=== PATIENT | female | born 1995 | race Hispanic/Latino ===

== ENCOUNTER 2018-03-08 06:45 | Outpatient (CLI) | payer BC, OTHER | END 2018-03-08 06:46 | disposition home or self-care (01) | LOC: BICULT 06:45 | PROVIDERS: ATTEND Family Medicine | DX: Z34.82 Encounter for supervision of other normal pregnancy, second trimester (principal); Z3A.17 17 weeks gestation of pregnancy | CPT/HCPCS: 76805 ==

== ENCOUNTER 2018-05-28 15:04 | Emergency (ER) | payer BC, OTHER ==
[2018-05-28 15:41] LABS: Bilirubin Negative (Negative); Blood, Urine Negative (Negative); Clarity CLOUDY (Clear); Glucose, Urine (Dipstick) 100 mg/dL (Negative); Leukocyte Small (Negative); Nitrite Negative (Negative); Protein, Urine (Dipstick) 30 mg/dL (Neg-Trace); Specific Gravity, Urine 1.026 (1.002-1.036)
[2018-05-28 15:42] LABS: Bacteria/HPF 4+ HPF (None Seen); RBC/HPF 0-3 HPF (0-3)
[2018-05-28 15:44] LABS: Pathc Cast-AUWi Flag 11.04 (0-2.49); Yeast-AUWi Flag 27.3 (0-25.0)
[2018-05-28 15:57] LABS: #Eosinphils 0.1 thou/uL (0.0-0.7); #Lymphocytes 2.2 thou/uL (1.20-3.40); #Monocytes 0.9 thou/uL (0.11-0.59); #Neutrophils 9.1 thou/uL (1.40-6.50); %Basophils 0.3 % (0.0-1.0); %Eosinophils 0.8 % (0.0-10.0); %Lymphocytes 17.6 % (21.0-51.0); %Monocytes 7.2 % (0.0-10.0); %Neutrophils 74.2 % (42.0-75.0); Mean Corpuscular HGB CONC 33.6 g/dL (32.0-36.0); Mean Corpuscular Hemoglobin 26.9 pg (27.0-31.0); Mean Corpuscular Volume 80.1 fL (78.0-98.0); Mean Platelet Volume 8.3 fL (7.4-10.4); Platelet Count 234 thou/uL (130-400); Red Blood Cell (RBC) Count 4.47 mill/uL (4.20-5.40); White Blood Cell (WBC) Count 12.3 thou/uL (4.8-10.8)
[2018-05-28 15:58] LABS: Hyaline Casts/LPF 0-3 HYALINE CAST LPF (0-3 Hyaline); Other Casts/LPF None Seen LPF (0-3 Hyaline); Yeast-All Forms None Seen HPF (None Seen)
== END 2018-05-28 16:48 | disposition left against medical advice (07) ==
LOC: ERS 15:04
DX: Z53.21 Procedure and treatment not carried out due to patient leaving prior to being seen by health care provider (principal)
CPT/HCPCS: 36415; 81003; 81015; 85025

== ENCOUNTER 2018-07-20 11:21 | Day surgery (SDC) | payer BC, OTHER ==
[2018-07-20 11:58] VITALS: BMI 42.9
== END 2018-07-20 12:34 | disposition home or self-care (01) ==
LOC: L&D/OP 11:21
PROVIDERS: ATTEND Family Medicine
DX: Z36.89 Encounter for other specified antenatal screening (principal); Z3A.37 37 weeks gestation of pregnancy
CPT/HCPCS: 59025; 99282

== ENCOUNTER 2018-07-28 16:17 | Day surgery (SDC) | payer BC, OTHER ==
[2018-07-28 17:07] LABS: ALT (SGPT) 12 U/L (8-55); AST (SGOT) 16 U/L (5-34); Albumin 3.2 g/dL (3.5-5.0); Alkaline Phosphatase 237 U/L (40-150); Anion Gap 12 mmol/L (10-20); BUN (Urea Nitrogen) 10 mg/dL (7.0-18.7); Bilirubin, Total 0.3 mg/dL (0.2-1.2); Calc. Creatinine Clearance 0 mL/min (70-130); Calcium 8.7 mg/dL (7.8-10.44); Carbon Dioxide 20 mmol/L (22-29); Chloride 107 mmol/L (98-107); Estimated GFR-MDRD Greater than 90; Globulin 3.6 g/dL (2.4-3.5); Glucose 127 mg/dL (70-105); Potassium 3.6 mmol/L (3.5-5.1); Protein, Total 6.8 g/dL (6.0-8.3); Sodium 135 mmol/L (136-145)
[2018-07-28 17:21] LABS: #Eosinphils 0.1 thou/uL (0.0-0.7); #Lymphocytes 2.3 thou/uL (1.20-3.40); #Monocytes 1.1 thou/uL (0.11-0.59); #Neutrophils 9.6 thou/uL (1.40-6.50); %Eosinophils 1.1 % (0.0-10.0); %Lymphocytes 17.2 % (21.0-51.0); %Monocytes 8.3 % (0.0-10.0); %Neutrophils 73.4 % (42.0-75.0); Anisocytosis SLIGHT = 6-15 cells (100X) (0-5/hpf); Elliptocytes SLIGHT = 2-5 cells (100X) (0-1/hpf); Hemoglobin 11.3 g/dL (12.0-16.0); Hypochromia SLIGHT = 6-15 cells (100X) (0-5/hpf); MDiff Complete? YES; Mean Corpuscular HGB CONC 31.4 g/dL (32.0-36.0); Mean Corpuscular Hemoglobin 23.5 pg (27.0-31.0); Mean Corpuscular Volume 74.8 fL (78.0-98.0); Mean Platelet Volume 9.5 fL (7.4-10.4); Microcytosis SLIGHT = 6-15 cells (100X) (0-5/hpf); PLT Morphology Comment Appears Adequate; Platelet Count 275 thou/uL (130-400); RBC Distribution Width 15.8 % (11.5-14.5); Red Blood Cell (RBC) Count 4.81 mill/uL (4.20-5.40); Tear Drops SLIGHT = 2-5 cells (100X) (0-1/hpf); White Blood Cell (WBC) Count 13.1 thou/uL (4.8-10.8)
[2018-07-28 17:41] VITALS: BMI 42.7
== END 2018-07-28 16:40 | disposition home or self-care (01) ==
LOC: L&D/OP 16:17
PROVIDERS: ATTEND Family Medicine
DX: O99.89 Other specified diseases and conditions complicating pregnancy, childbirth and the puerperium (principal); R03.0 Elevated blood-pressure reading, without diagnosis of hypertension; O24.415 Gestational diabetes mellitus in pregnancy, controlled by oral hypoglycemic drugs; Z3A.38 38 weeks gestation of pregnancy
CPT/HCPCS: 36415; 59025; 80053; 85025; 99282

== ENCOUNTER 2018-07-29 00:52 | Inpatient (IN) | payer BC, OTHER ==
[2018-07-29] MEDS: Lactated Ringer's 1,000 ML IV SCH ×3 (01:50→05:03)
[2018-07-29 01:51] VITALS: BMI 42.9
[2018-07-29] MEDS ORDERED: Acetaminophen 500 MG TAB PO PRN (02:00)
[2018-07-29] MEDS ORDERED: Promethazine HCl 25 MG/ML VIAL IM PRN ×2 (02:00→03:00)
[2018-07-29] MEDS ORDERED: Butorphanol Tartrate 1 MG/ML VIAL SLOW IVP PRN (02:00)
[2018-07-29] MEDS ORDERED: Ondansetron HCl/PF 4 MG/2 ML Vial IVP PRN ×3 (02:00→08:02)
[2018-07-29 02:01] LABS: Hemoglobin 11.1 g/dL (12.0-16.0); Mean Corpuscular HGB CONC 31.9 g/dL (32.0-36.0); Mean Corpuscular Hemoglobin 23.9 pg (27.0-31.0); Mean Corpuscular Volume 74.8 fL (78.0-98.0); Platelet Count 273 thou/uL (130-400); RBC Distribution Width 15.7 % (11.5-14.5); Red Blood Cell (RBC) Count 4.64 mill/uL (4.20-5.40); White Blood Cell (WBC) Count 12.8 thou/uL (4.8-10.8)
[2018-07-29] MEDS ORDERED: NS w/ Oxytocin 10 units 500 ML IV SCH ×2 (02:15)
[2018-07-29] MEDS ORDERED: HYDROcodone/Acetaminophen 5/325 mg Tablet PO PRN ×3 (02:15→08:02)
[2018-07-29] MEDS ORDERED: Bupivacaine 0.5% 20 ML, fentaNYL Citrate/PF 400 MCG in Sodium Chloride 0.9% 72 ML EPIDURAL SCH (02:15)
[2018-07-29] MEDS ORDERED: DISCONTINUE ALL PREVIOUS NARCOTICS FS SCH (02:15)
[2018-07-29] MEDS ORDERED: Methylergonovine 0.2 MG/ML VIAL IM PRN (02:15)
[2018-07-29] MEDS ORDERED: Lidocaine 1% (PF) 30 ML VIAL SC PRN (02:15)
[2018-07-29] MEDS ORDERED: Ibuprofen 800 MG TAB PO PRN (02:15)
[2018-07-29] MEDS ORDERED: NS / Oxytocin 40 units/1000ml 1,000 ML IV SCH ×2 (02:15→08:02)
[2018-07-29] MEDS ORDERED: Carboprost 250 MCG/ML AMP IM PRN (02:15)
[2018-07-29] MEDS ORDERED: Misoprostol 200 MCG TAB RC PRN (02:15)
[2018-07-29 02:38] LABS: HBSAg Index 0.19 S/CO (0-0.99); Hep B Surf Ag Non-Reactive S/CO (NonReactive)
[2018-07-29] MEDS ORDERED: Eucerin (Mineral Oil/Petrolatum,White) 30 gm Jar TOP PRN (03:00)
[2018-07-29] MEDS ORDERED: Lactated Ringer's 500 ML IV PRN (03:00)
[2018-07-29] MEDS ORDERED: ePHEDrine/0.9% NaCl/PF SYRINGE 50 mg/10 ml SLOW IVP PRN (03:00)
[2018-07-29] MEDS ORDERED: Communication Order-Pharmacy FS SCH (03:00)
[2018-07-29] MEDS ORDERED: Acetaminophen 325 MG TAB PO PRN (03:00)
[2018-07-29] MEDS ORDERED: Naloxone HCl 0.4 mg/ml Vial IVP PRN ×2 (03:00)
[2018-07-29] MEDS ORDERED: diphenhydrAMINE 50 MG/ML VIAL IVP PRN (03:00)
[2018-07-29] MEDS ORDERED: fentaNYL Citrate/PF 400 MCG, Bupivacaine 0.5% 20 ML in Sodium Chloride 0.9% 72 ML EPIDURAL SCH (03:00)
[2018-07-29 05:27] LABS: Syphilis Antibody Nonreactive (Nonreactive); Syphilis Antibody Index 0.02 S/CO (<1.00 Non-Reactive)
[2018-07-29] MEDS ORDERED: diphenhydrAMINE 25 MG CAP PO PRN (08:02)
[2018-07-29] MEDS ORDERED: Lanolin Ointment 7 GM TUBE TOP PRN (08:02)
[2018-07-29] MEDS ORDERED: Preparation H Ointment 28 GM TUBE PR PRN (08:02)
[2018-07-29] MEDS ORDERED: Benzocaine/Menthol 20-0.5% 60 ML CAN TOP PRN (08:02)
[2018-07-29] MEDS ORDERED: Bisacodyl 10 MG SUPP PR PRN (08:02)
[2018-07-29] MEDS ORDERED: Milk Of Magnesia 30 ML UDCUP PO PRN (08:02)
[2018-07-29] MEDS ORDERED: Lidocaine 2% MPF 10 ML AMP (For Epidural Use) ONE (10:00)
[2018-07-29] MEDS: Acetaminophen/Codeine 30-300mg Tablet PO PRN (11:07)
[2018-07-29] MEDS: Docusate Calcium (SURFAK) 240 MG CAP PO SCH ×2 (11:09→22:05)
[2018-07-29] MEDS: Ferrous Sulfate 325 MG TAB PO SCH ×2 (11:10→17:45)
[2018-07-29] MEDS: Prenatal Vitamin 1 TAB PO SCH (12:42)
[2018-07-29] MEDS: Ibuprofen 800 MG TAB PO SCH ×2 (13:59→22:05)
[2018-07-30] MEDS: Ibuprofen 800 MG TAB PO SCH ×3 (05:50→20:52)
[2018-07-30] MEDS: Prenatal Vitamin 1 TAB PO SCH (08:48)
[2018-07-30] MEDS: Docusate Calcium (SURFAK) 240 MG CAP PO SCH ×2 (08:49→20:51)
[2018-07-30] MEDS: Ferrous Sulfate 325 MG TAB PO SCH ×2 (08:50→19:10)
[2018-07-31] MEDS: Ibuprofen 800 MG TAB PO SCH ×2 (06:38→13:48)
[2018-07-31] MEDS: Ferrous Sulfate 325 MG TAB PO SCH ×2 (07:11→07:12)
[2018-07-31 08:03] VITALS: BP 94/55; TEMP 98.3
[2018-07-31] MEDS: Docusate Calcium (SURFAK) 240 MG CAP PO SCH (08:15)
[2018-07-31] MEDS: Prenatal Vitamin 1 TAB PO SCH (08:15)
[2018-07-31] MEDS: Acetaminophen/Codeine 30-300mg Tablet PO PRN (18:28)
== END 2018-07-31 18:30 | disposition home or self-care (01) | DRG 775 ==
LOC: L&D/OP 00:52 → L&D 01:35 → 3SE 09:46
PROVIDERS: ADMIT Family Medicine; ATTEND Family Medicine
PROC: 10E0XZZ Delivery of Products of Conception, External Approach (ICD-10-PCS; principal; 2018-07-29)
DX: O24.429 Gestational diabetes mellitus in childbirth, unspecified control (principal); Z3A.38 38 weeks gestation of pregnancy; Z37.0 Single live birth; O76 Abnormality in fetal heart rate and rhythm complicating labor and delivery
CPT/HCPCS: 36415; 51702; 59025; 80053; 85025; 85027; 86780; 86850; 86900; 86901; 87340; 99282; 99285; J2001; J3010; J3490; J7050

== ENCOUNTER 2018-11-23 11:05 | Emergency (ER) | payer BC, OTHER ==
[2018-11-23] MEDS ORDERED: Ketorolac Tromethamine 30 MG/ML VIAL ONE (13:05)
== END 2018-11-23 14:04 | disposition home or self-care (01) ==
LOC: ERS 11:05
DX: M54.41 Lumbago with sciatica, right side (principal); E11.9 Type 2 diabetes mellitus without complications; Z79.899 Other long term (current) drug therapy
CPT/HCPCS: 96372; J1885

== ENCOUNTER 2022-06-10 18:04 | Emergency (ER) | payer BC ==
[2022-06-10 18:47] LABS: #Eosinphils 0.3 thou/uL (0.0-0.7); #Lymphocytes 3.2 thou/uL (1.20-3.40); #Monocytes 0.8 thou/uL (0.11-0.59); #Neutrophils 5.8 thou/uL (1.40-6.50); %Basophils 0.4 % (0.0-1.0); %Eosinophils 2.6 % (0.0-10.0); %Lymphocytes 31.9 % (21.0-51.0); %Monocytes 7.5 % (0.0-10.0); %Neutrophils 57.7 % (42.0-75.0); Hemoglobin 15.1 g/dL (12.0-16.0); Mean Corpuscular HGB CONC 33.1 g/dL (32.0-36.0); Mean Corpuscular Hemoglobin 29.5 pg (27.0-31.0); Mean Platelet Volume 9.2 fL (7.4-10.4); Platelet Count 241 thou/uL (130-400); RBC Distribution Width 11.8 % (11.5-14.5); Red Blood Cell (RBC) Count 5.11 mill/uL (4.20-5.40); White Blood Cell (WBC) Count 10.1 thou/uL (4.8-10.8)
[2022-06-10 18:53] LABS: BHCG - Serum Negative (NEGATIVE); Pregs Control Background? CLEAR/WHITE (CLR/WHITE); Pregs Control Bar Appear? YES (CONTROL BAR)
[2022-06-10 19:21] LABS: ALT (SGPT) 78 U/L (8-55); AST (SGOT) 61 U/L (5-34); Albumin 4.4 g/dL (3.5-5.0); Alkaline Phosphatase 101 U/L (40-110); Anion Gap 14 mmol/L (10-20); BUN (Urea Nitrogen) 12 mg/dL (7.0-18.7); Bilirubin, Total 0.4 mg/dL (0.2-1.2); Calc. Creatinine Clearance 0 mL/min (70-130); Calcium 9.4 mg/dL (7.8-10.44); Carbon Dioxide 24 mmol/L (22-29); Chloride 103 mmol/L (98-107); Estimated GFR 80; Globulin 3.6 g/dL (2.4-3.5); Glucose 293 mg/dL (70-105); Sodium 137 mmol/L (136-145)
[2022-06-10 19:57] LABS: Bilirubin Negative (Negative); Blood, Urine 1+ (Negative); Clarity Clear (Clear); Glucose, Urine (Dipstick) Greater than 1000 mg/dL (Negative); Ketone, Urine Trace mg/dL (Negative); Leukocyte 25 Leu/uL (Negative); Nitrite Negative (Negative); Protein, Urine (Dipstick) Negative (Neg-Trace); RBC/HPF 0-3 HPF (0-3); Specific Gravity, Urine 1.044 (1.002-1.036); Squamous Epithelial 0-3 HPF (0-3); Urobilinogen Normal mg/dL (Less than 2); pH, Urine 5.5 (5.0-9.0)
[2022-06-10 20:07] LABS: Bacteria/HPF 2+ HPF (None Seen)
== END 2022-06-10 22:32 | disposition home or self-care (01) ==
LOC: ERS 18:04
DX: N30.00 Acute cystitis without hematuria (principal)
CPT/HCPCS: 36415; 80053; 81003; 81015; 84703; 85025; 99284

== ENCOUNTER 2023-09-19 23:21 | Emergency (ER) | payer BC, SELFPAY ==
[2023-09-20 01:44] LABS: Bacteria/HPF None Seen HPF (None Seen); Bilirubin Negative (Negative); Blood, Urine Negative (Negative); CAUTI Indications for Culture Dysuria,urgency,freq; Clarity Clear (Clear); Glucose, Urine (Dipstick) Greater than 1000 mg/dL (Negative); Ketone, Urine Negative (Negative); Leukocyte Negative Leu/uL (Negative); Nitrite Negative (Negative); Protein, Urine (Dipstick) Negative (Neg-Trace); RBC/HPF 0-3 HPF (0-3); Specific Gravity, Urine 1.036 (1.002-1.036); Squamous Epithelial 0-3 HPF (0-3); Urobilinogen Normal mg/dL (Less than 2)
[2023-09-20 01:47] LABS: Urine Culture Reflex Yes Yes
[2023-09-20 01:49] LABS: Pregnancy Test - Urine (BHCG) POSITIVE (Negative); Pregu Control Background? CLEAR/WHITE (CLR/WHITE); Pregu Control Bar Appear? YES (CONTROL BAR); Specific Gravity 1.036 (1.002-1.036)
[2023-09-20 03:09] LABS: SARS-CoV-2 NAA Rapid Test Not Detected (NotDetected)
== END 2023-09-20 03:29 | disposition home or self-care (01) ==
LOC: ERS 23:21
DX: O23.41 Unspecified infection of urinary tract in pregnancy, first trimester (principal); N39.0 Urinary tract infection, site not specified; O98.511 Other viral diseases complicating pregnancy, first trimester; J10.1 Influenza due to other identified influenza virus with other respiratory manifestations; O24.111 Pre-existing type 2 diabetes mellitus, in pregnancy, first trimester; Z20.822 Contact with and (suspected) exposure to COVID-19; Z79.84 Long term (current) use of oral hypoglycemic drugs; Z3A.00 Weeks of gestation of pregnancy not specified
CPT/HCPCS: 81001; 81025; 87077; 87086; 87186; 99284